=== PATIENT | male | born 1940 | race Caucasian/White ===

== ENCOUNTER 2017-07-05 09:33 | Day surgery (SDC) | payer MEDICARE, OTHER ==
[~2017-07-05] VITALS: Ht 182.9 cm; Wt 72.4 kg
[~2017-07-05 09:33] MED LIST: ACET325T14 PO; ALBU6.7H PO; CHOL10003 PO; COLE1TAB5 PO; FERR-46 PO; FURO20TA3 PO; LOSA25TA5 PO; MELA3TAB2 PO; METO25TA91 PO; MIRT7.5T8 PO; MULT-516 PO; PANT40TA5 PO; SACC250C4 PO; SIMV10TA3 PO; VANC125C2 PO; WARF1TAB PO; WARF2.5T PO
[2017-07-05] MEDS ORDERED: LIDOCAINE 1%, 2ML ONE (10:27)
[2017-07-05 10:38] VITALS: BP 120/70
[2017-07-05] MEDS ORDERED: LACTATED RINGERS 1,000 ML IV SCH (10:40)
[2017-07-05] MEDS ORDERED: LIDOCAINE 1%, 2ML SQ PRN (11:00)
[2017-07-05 11:03] LABS: FECAL DELIVERY METHOD COLONOSCOPY
[2017-07-05 11:15] LABS: HEMATOCRIT 45.3 % (39.2-51.8); HEMOGLOBIN 14.1 g/dL (13.7-18.0); WHITE BLOOD COUNT 16.1 x10^3/uL (3.4-10)
[2017-07-05 11:16] LABS: DIFF TOTAL CELLS COUNTED 100 CELL DIFF
[2017-07-05 11:25] LABS: ASPARTATE AMINO TRANSFERASE 30 U/L (15-37); BLOOD UREA NITROGEN 16 mg/dL (7-18)
[2017-07-05 11:31] LABS: ANISOCYTOSIS 1+; MICROCYTOSIS 1+; OVALOCYTES 1+; POIKILOCYTOSIS 1+; VERIFY COUNTS? YES
[2017-07-05 11:33] LABS: LARGE PLATELETS 1+
[2017-07-05] MEDS ORDERED: PROPOFOL 10 MG/ML, 20ML ONE (12:05)
== END 2017-07-05 15:10 ==
LOC: OUT 09:33
PROVIDERS: ATTEND Internal Medicine Gastroenterology
DX: A04.7 Enterocolitis due to Clostridium difficile (principal); Z88.8 Allergy status to other drugs, medicaments and biological substances; Z79.01 Long term (current) use of anticoagulants
CPT/HCPCS: 36415; 44705; 80053; 85025; 85610; 85730; 93005; G0455; J2704; J3490; J7120